=== PATIENT | male | born 1990 | race Caucasian/White ===

== ENCOUNTER 2018-09-17 02:41 | Emergency (ER) | payer OTHER ==
[~2018-09-17] VITALS: Ht 175.3 cm; Wt 79.5 kg
[2018-09-17 02:47] VITALS: TEMP 99.1
[2018-09-17] MEDS ORDERED: MULTIPLE VITAMI1 CAP PO (02:49)
[2018-09-17 04:06] LABS: COLLECTION METHOD CLEAN CATCH
[2018-09-17 04:12] LABS: PH 6 (5-8); SQUAMOUS EPITHELIAL 0-2 /hpf; URINE APPEARANCE Clear; URINE BACTERIA None Seen /hpf; URINE BILIRUBIN Negative (NEGATIVE); URINE BLOOD Negative (NEGATIVE); URINE COLOR Straw; URINE GLUCOSE Negative (NEGATIVE); URINE KETONE Negative (NEGATIVE); URINE LEUKOCYTE ESTERASE Negative (NEGATIVE); URINE NITRATE Negative (NEGATIVE); URINE PROTEIN(semi-quant) Negative (NEGATIVE); URINE RBC 0-2 /hpf; URINE UROBILINOGEN Negative (NEGATIVE)
[2018-09-17] MEDS ORDERED: NORCO 325 MG-51 TAB PO (04:58)
[2018-09-17] MEDS ORDERED: LEVAQUIN 5500 MG/TA1 PO (04:58)
[2018-09-17 05:12] VITALS: BP 115/70; PULSE 70
== END 2018-09-17 05:12 | disposition home or self-care (01) ==
LOC: COL.ER 02:41
PROVIDERS: Emergency Medicine
DX: N50.3 Cyst of epididymis (principal); Z90.89 Acquired absence of other organs
CPT/HCPCS: J1885

== ENCOUNTER 2018-11-08 21:35 | Emergency (ER) | payer OTHER ==
[~2018-11-08] VITALS: Ht 175.3 cm; Wt 78.6 kg
[~2018-11-08 21:35] MED LIST: LEVAQUIN 5500 MG/TA1 PO; MULTIPLE VITAMI1 CAP PO; NORCO 325 MG-51 TAB PO
[2018-11-08 21:47] VITALS: BP 138/81; PULSE 81; TEMP 99
== END 2018-11-09 01:30 | disposition home or self-care (01) ==
LOC: COL.ER 21:35
DX: S81.831A Puncture wound without foreign body, right lower leg, initial encounter (principal); S80.11XA Contusion of right lower leg, initial encounter; Z87.891 Personal history of nicotine dependence; W26.8XXA Contact with other sharp object(s), not elsewhere classified, initial encounter